=== PATIENT | male | born 1970 | race Caucasian/White ===

== ENCOUNTER 2018-06-20 16:32 | Inpatient (IN) | payer OTHER ==
[2018-06-20 17:05] VITALS: BMI 27.1
--- NOTE | 2018-06-20 19:40 | HP ---
CIWA Score Nausea/Vomitin-No Nausea/No Vomiting Muscle Tremors: 4-Moderate,w/Arms Extend Anxiety: 4-Mod. Anxious/Guarded Agitation: 3 Paroxysmal Sweats: 2 Orientation: 0-Oriented Tacttile Disturbances: 0-None Auditory Disturbances: 0-None Visual Disturbances: 0-None Headache: 0-None Present CIWA-Ar Total Score: 13 - Admission Criteria OASAS Guidelines: Admission for Medically Managed Detox: Requires at least one of the followin. CIWA greater than 12 2. Seizures within the past 24 hours 3. Delirium tremens within the past 24 hours 4. Hallucinations within the past 24 hours 5. Acute intervention needed for co occurring medical disorder 6. Acute intervention needed for co occurring psychiatric disorder 7. Severe withdrawal that cannot be handled at a lower level of care (continued vomiting, continued diarrhea, abnormal vital signs) requiring intravenous medication and/or fluids 8. 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 Prior tx episode 2014 for ETOh use after [facility] [place] detox , 30-d rehab in [place] . ETOh use since high school , progressively increased in 30's with binge-drinking every few months . Denies SI / HI . tobacco : 1/2 ppd utox neg for all PMHX : htn several years ago , stopped meds after wt loss of > 30 lbs PSHx : jacey age 19's , tonsillectomy PSYch : depression , anxiety saw psychiatry 2013 SHX : lives alone , since 2016 , divorce in progress , 3 children ages 9,11,14 all live w/bio mother in [place] . Has SO who is aware of pt's presence in tx . Exam Limitations: Clinical Condition - Ebola screening Have you been sick,other than usual withdrawal symptoms: No - Review of Systems Constitutional: See HPI, Diaphoresis, Night Sweats, Changes in sleep EENT: reports: Other (reading glasses , denies dysphagia) Respiratory: reports: No Symptoms reported Cardiac: reports: No Symptoms Reported GI: reports: No Symptoms Reported : reports: No Symptoms Reported Musculoskeletal: reports: No Symptoms Reported Integumentary: reports: No Symptoms Reported Neuro: reports: No Symptoms reported Endocrine: reports: No Symptoms Reported Psychiatric: reports: Orientated x3, Anxious, Depressed Patient History - Smoking Cessation Smoking history: Current every day smoker Have you smoked in the past 12 months: Yes Hx Chewing Tobacco Use: No Initiated information on smoking cessation: No Family Disease History - Family Disease History Family Disease History: CA: Mother (d. 49 ovarian CA ), Other: Father (d.[address] [place] pt age 13 ), Mother, Brother (A & W ), Sister (A & W ), Son (A & W ), Daughter (A & W ) Admission Physical Exam [facility] - Vital Signs Vital Signs: Vital Signs - 24 hr 06/20/18 17:03 Temperature 97.5 F L Pulse Rate 88 Respiratory 20 Rate Blood Pressure 148/88 - Physical General Appearance: Yes: Moderate Distress, Anxious HEENTM: Yes: EOMI, Hearing grossly Normal, Normocephalic, Normal Voice Respiratory: Yes: Chest Non-Tender, Lungs Clear, Normal Breath Sounds Neck: Yes: No masses,lesions,Nodules, Trachea in good position Breast: Yes: Breast Exam Deferred Cardiology: Yes: Regular Rhythm, Regular Rate, S1, S2, Tachycardia Abdominal: Yes: Normal Bowel Sounds, Soft Genitourinary: Yes: Within Normal Limits Back: Yes: Normal Inspection Musculoskeletal: Yes: Gait Steady Extremities: Yes: Normal Capillary Refill Neurological: Yes: Motor Strength 5/5 Integumentary: Yes: Normal Color, Warm - Diagnostic (1) Alcohol dependence Current Visit: Yes Status: Acute Qualifiers: Substance use status: in withdrawal (2) Nicotine dependence Current Visit: Yes Status: Chronic Qualifiers: Nicotine product type: cigarettes BHS Breath Alcohol Content Breath Alcohol Content: 0 Urine Drug Screen - Results Drug Screen Negative: Yes
[2018-06-20] MEDS ORDERED: P-EPHED 60MG/TRIPROLIDI 2.5MG TABLET PO PRN (19:47)
[2018-06-20] MEDS ORDERED: chlordiazePOXIDE HCL 25 MG CAPSULE PO PRN (19:47)
[2018-06-20] MEDS ORDERED: guaiFENesin/D-METHORPHAN HB 10 ML UNIT-DOSE CUPS PO PRN (19:47)
[2018-06-20] MEDS ORDERED: ACETAMINOPHEN 325 MG TABLET (FP) PO PRN (19:47)
[2018-06-20] MEDS ORDERED: MENTHOL/PHENOL 1 EACH UD MM PRN (19:47)
[2018-06-20] MEDS ORDERED: MAGNESIUM HYDROX 2400MG/30ML ORAL SUSPENSION 30 ML CUP PO PRN (19:47)
[2018-06-20] MEDS ORDERED: IBUPROFEN 400 MG TABLET (FP) PO PRN (19:47)
[2018-06-20] MEDS ORDERED: MAGNESIUM CITRATE 300 ML BOTTLE PO PRN (19:47)
[2018-06-20] MEDS ORDERED: NICOTINE POLACRILEX 2 MG GUM BUC PRN (19:48)
[2018-06-21] MEDS: THIAMINE HCL 100 MG TABLET (FP) PO SCH ×2 (00:04→22:18)
[2018-06-21] MEDS: chlordiazePOXIDE HCL 25 MG CAPSULE PO SCH ×5 (00:07→22:19)
[2018-06-21] MEDS: MELATONIN 5 MG TABLETS PO PRN ×2 (00:08→22:19)
[2018-06-21] MEDS: PRENATAL VITAMINS W/ FOLIC ACID TABLET (FP) PO SCH (10:33)
[2018-06-21 10:58] LABS: ALBUMIN 2.9 g/dl (3.4-5.0); ALK PHOS 106 U/L (45-117); ANION GAP 7 MMOL/L (8-16); BILIRUBIN,TOTAL 0.5 mg/dL (0.2-1); BLOOD UREA NITROGEN 16 mg/dL (7-18); CALCIUM 8.8 mg/dL (8.5-10.1); CHLORIDE 107 mmol/L (98-107); CO2 29 mmol/L (21-32); CREATININE 0.9 mg/dL (0.55-1.3); GLUCOSE,RANDOM 116 mg/dL (74-106); POTASSIUM 4.1 mmol/L (3.5-5.1); SGOT/AST 13 U/L (15-37); SGPT/ALT 24 U/L (13-61); SODIUM 143 mmol/L (136-145); TOT PROT 5.8 g/dl (6.4-8.2)
[2018-06-21 10:58] LABS: HEMATOCRIT 39.7 % (35.4-49); MCH 30.7 pg (25.7-33.7); MCHC 32.9 g/dl (32.0-35.9); MEAN CELL VOLUME 93.5 fl (80-96); MEAN PLT VOLUME 7.9 fl (7.5-11.1); PLATELET COUNT 303 K/MM3 (134-434); RBC 4.24 M/mm3 (4.00-5.60); RDW 13.4 % (11.9-15.9); WHITE BLOOD COUNT 3.8 K/mm3 (4.0-10.0)
--- NOTE | 2018-06-21 13:08 | PN ---
S CIWA - CIWA Score Nausea/Vomitin-Mild Nausea/No Vomiting Muscle Tremors: 4-Moderate,w/Arms Extend Anxiety: 2 Agitation: 4-Moderately Restless Paroxysmal Sweats: 1-Minimal Palms Moist Orientation: 1-Uncertain about Date Tacttile Disturbances: 0-None Auditory Disturbances: 0-None Visual Disturbances: 0-None Headache: 2-Mild CIWA-Ar Total Score: 15 BHS Progress Note (SOAP) Subjective: low energy trouble sleep at night tremor sweating Objective: 06/21/18 13:07 Vital Signs Temperature 97.6 F 06/21/18 09:42 Pulse Rate 62 06/21/18 09:42 Respiratory Rate 19 06/21/18 09:42 Blood Pressure 117/76 06/21/18 09:42 O2 Sat by Pulse Oximetry (%) Laboratory Last Values WBC 3.8 K/mm3 (4.0-10.0) L 06/21/18 08:20 RBC 4.24 M/mm3 (4.00-5.60) 06/21/18 08:20 Hgb 13.0 GM/dL (11.7-16.9) 06/21/18 08:20 Hct 39.7 % (35.4-49) 06/21/18 08:20 MCV 93.5 fl (80-96) 06/21/18 08:20 MCH 30.7 pg (25.7-33.7) 06/21/18 08:20 MCHC 32.9 g/dl (32.0-35.9) 06/21/18 08:20 RDW 13.4 % (11.9-15.9) 06/21/18 08:20 Plt Count 303 K/MM3 (134-434) 06/21/18 08:20 MPV 7.9 fl (7.5-11.1) 06/21/18 08:20 Sodium 143 mmol/L (136-145) 06/21/18 07:50 Potassium 4.1 mmol/L (3.5-5.1) 06/21/18 07:50 Chloride 107 mmol/L (98-107) 06/21/18 07:50 Carbon Dioxide 29 mmol/L (21-32) 06/21/18 07:50 Anion Gap 7 MMOL/L (8-16) L 06/21/18 07:50 BUN 16 mg/dL (7-18) 06/21/18 07:50 Creatinine 0.9 mg/dL (0.55-1.3) 06/21/18 07:50 Creat Clearance w eGFR > 60 (>60) 06/21/18 07:50 Random Glucose 116 mg/dL (74-106) H 06/21/18 07:50 Calcium 8.8 mg/dL (8.5-10.1) 06/21/18 07:50 Total Bilirubin 0.5 mg/dL (0.2-1) 06/21/18 07:50 AST 13 U/L (15-37) L 06/21/18 07:50 ALT 24 U/L (13-61) 06/21/18 07:50 Alkaline Phosphatase 106 U/L (45-117) 06/21/18 07:50 Total Protein 5.8 g/dl (6.4-8.2) L 06/21/18 07:50 Albumin 2.9 g/dl (3.4-5.0) L 06/21/18 07:50 RPR Titer Nonreactive (NONREACTIVE) 06/21/18 07:50 lab noted Assessment: 06/21/18 13:08 withdrawal sx Plan: continue detox
[2018-06-22] MEDS: chlordiazePOXIDE HCL 25 MG CAPSULE PO SCH ×3 (06:03→18:03)
[2018-06-22] MEDS: PRENATAL VITAMINS W/ FOLIC ACID TABLET (FP) PO SCH (10:39)
--- NOTE | 2018-06-22 15:19 | PN ---
S CIWA - CIWA Score Nausea/Vomitin-No Nausea/No Vomiting Muscle Tremors: None Anxiety: 4-Mod. Anxious/Guarded Agitation: 3 Paroxysmal Sweats: 3 Orientation: 0-Oriented Tacttile Disturbances: 2-Mild Itch/Numbness/Burn Auditory Disturbances: 0-None Visual Disturbances: 1-Very Mild Sensitivity Headache: 0-None Present CIWA-Ar Total Score: 13 S Progress Note (SOAP) Subjective: Interrupted Sleep, Anxious, Sweating. Objective: PATIENT A & O X 3, OBSERVED AMBULATING ON UNIT. IN NO ACUTE DISTRESS. 06/22/18 15:18 Vital Signs Temperature 97.9 F 06/22/18 13:27 Pulse Rate 85 06/22/18 13:27 Respiratory Rate 18 06/22/18 13:27 Blood Pressure 122/59 L 06/22/18 13:27 O2 Sat by Pulse Oximetry (%) Laboratory Tests 06/21/18 06/21/18 06/21/18 07:50 07:50 08:20 WBC 3.8 L RBC 4.24 Hgb 13.0 Hct 39.7 MCV 93.5 MCH 30.7 MCHC 32.9 RDW 13.4 Plt Count 303 MPV 7.9 Sodium 143 Potassium 4.1 Chloride 107 Carbon Dioxide 29 Anion Gap 7 L BUN 16 Creatinine 0.9 Creat Clearance w eGFR > 60 Random Glucose 116 H Calcium 8.8 Total Bilirubin 0.5 AST 13 L ALT 24 Alkaline Phosphatase 106 Total Protein 5.8 L Albumin 2.9 L RPR Titer Nonreactive LABS NOTED. Assessment: 06/22/18 15:18 WITHDRAWAL SYMPTOMS. Plan: CONTINUE DETOX. INCREASE DAILY PO FLUID INTAKE.
[2018-06-22] MEDS: MAG HYDROX/AL HYDROX/SIMETH 30 ML UNIT-DOSE CUP PO PRN (20:56)
[2018-06-22] MEDS: chlordiazePOXIDE 5 MG CAPSULE PO SCH (23:09)
[2018-06-22] MEDS: THIAMINE HCL 100 MG TABLET (FP) PO SCH (23:10)
[2018-06-23] MEDS: LOPERAMIDE HCL 2 MG CAPSULE PO PRN (02:11)
[2018-06-23] MEDS: MAG HYDROX/AL HYDROX/SIMETH 30 ML UNIT-DOSE CUP PO PRN (02:29)
[2018-06-23] MEDS: chlordiazePOXIDE 5 MG CAPSULE PO SCH ×3 (06:27→17:37)
[2018-06-23] MEDS: PRENATAL VITAMINS W/ FOLIC ACID TABLET (FP) PO SCH (10:18)
[2018-06-23] MEDS: hydrOXYzine PAMOATE 50 MG CAPSULE (FP) PO PRN ×2 (10:20→17:40)
--- NOTE | 2018-06-23 11:58 | PN ---
BHS Progress Note (SOAP) Subjective: acid reflux sweats Objective: 06/23/18 11:57 Vital Signs Temperature 97.9 F 06/23/18 09:18 Pulse Rate 83 06/23/18 09:18 Respiratory Rate 16 06/23/18 09:18 Blood Pressure 126/70 06/23/18 09:18 O2 Sat by Pulse Oximetry (%) aaox3 ambulating no acute distress Assessment: 06/23/18 11:57 mild withdrawal Plan: continue detox increase fluids d/c in am
[2018-06-23] MEDS ORDERED: RANITIDINE HCL 150 MG TABLET (FP) PO ONE (12:20)
[2018-06-23] MEDS ORDERED: RANITIDINE HCL 150 MG TABLET (FP) PO SCH (22:00)
[2018-06-23] MEDS: chlordiazePOXIDE HCL 10 MG CAPSULE PO SCH (22:27)
[2018-06-23] MEDS: THIAMINE HCL 100 MG TABLET (FP) PO SCH (22:27)
[2018-06-24] MEDS: LOPERAMIDE HCL 2 MG CAPSULE PO PRN (01:03)
[2018-06-24] MEDS: MAG HYDROX/AL HYDROX/SIMETH 30 ML UNIT-DOSE CUP PO PRN (01:03)
[2018-06-24] MEDS: chlordiazePOXIDE HCL 10 MG CAPSULE PO SCH (05:30)
[2018-06-24 07:13] VITALS: BP 121/67; PULSE 69; TEMP 96.6
--- NOTE | 2018-06-24 08:48 | DS ---
[facility] Detox Discharge Summary Admission Date: 06/20/18 Discharge Date: 06/24/18 - History Present History: Alcohol Dependence - Physical Exam Results Vital Signs: Vital Signs Temperature 96.6 F L 06/24/18 07:12 Pulse Rate 69 06/24/18 07:12 Respiratory Rate 18 06/24/18 07:12 Blood Pressure 121/67 06/24/18 07:12 O2 Sat by Pulse Oximetry (%) - Treatment Hospital Course: Detox Protocol Followed, Detoxed Safely, Responded well, Discharged Condition Good, Rehab Referral Accepted - Medication Discharge Medications: Ambulatory Orders NK [No Known Home Medication] 06/20/18 - Diagnosis (1) Alcohol dependence Current Visit: Yes Status: Chronic Qualifiers: Substance use status: uncomplicated Qualified Code(s): F10.20 - Alcohol dependence, uncomplicated (2) Nicotine dependence Current Visit: Yes Status: Chronic Qualifiers: Nicotine product type: cigarettes Substance use status: uncomplicated Qualified Code(s): F17.210 - Nicotine dependence, cigarettes, uncomplicated - AMA Did Patient Leave Against Medical Advice: No (referred to [facility] or [facility] inpatient rehab)
== END 2018-06-24 09:54 | disposition home or self-care (01) | DRG 775 ==
LOC: YASAS 16:32 → Y6N 20:32
PROC: HZ2ZZZZ Detoxification Services for Substance Abuse Treatment (ICD-10-PCS; principal; 2018-06-20)
DX: F10.230 Alcohol dependence with withdrawal, uncomplicated (principal); F17.213 Nicotine dependence, cigarettes, with withdrawal
CPT/HCPCS: 36415; 80053; 85027; 86593

== ENCOUNTER 2020-05-19 19:17 | Emergency (ER) | payer OTHER ==
[2020-05-19 19:28] VITALS: BP 156/67; PULSE 71; TEMP 98.6; BMI 26.4
[2020-05-19] MEDS ORDERED: ALPRAZolam 0.25 MG TABLET PO ONE (19:52)
[2020-05-19] MEDS ORDERED: ALPRAZolam 1 MG TABLET PO PRN (20:04)
[2020-05-19] MEDS ORDERED: ALPRAZolam 0.25 MG TABLET ONE (20:14)
== END 2020-05-19 20:20 | disposition home or self-care (01) ==
LOC: JER 19:17
DX: F10.99 Alcohol use, unspecified with unspecified alcohol-induced disorder (principal); I10 Essential (primary) hypertension
CPT/HCPCS: 71045-TC-FY; 93005; 93010; 99285-25